=== PATIENT | male | born 1950 | race Caucasian/White ===

== ENCOUNTER 2016-05-31 20:29 | Inpatient (IN) | payer MEDICARE, OTHER ==
[2016-05-31 20:41] LABS: Glucose,Whole Blood 216 mg/dL (75-99)
[2016-05-31] MEDS ORDERED: SODIUM CHLORIDE 0.9% 1,000 ML IV ONE ×2 (20:47)
[2016-05-31] MEDS ORDERED: ONDANSETRON 4 MG/2 ML VIAL IVP STA (20:54)
[2016-05-31 21:20] LABS: Basophils % (A) 0 %; CH 29.3; CHCM 34.9; Eosinophils # (A) 0.1 k/uL (0-0.7); Eosinophils % (A) 1 %; HCT 46.7 % (39.0-53.0); HGB 15.9 gm/dL (13.0-17.5); Luc # (Auto) 0.05; Luc % (Auto) 1; Lymphocytes # (A) 0.6 k/uL (1.0-4.8); Lymphocytes % (A) 6 %; MCH 28.6 pg (25.0-35.0); MCV 84.1 fL (80.0-100.0); Mean Platelet Volume 7.1; Monocytes # (A) 0.4 k/uL (0-1.0); Monocytes % (A) 5 %; Neutrophils # (A) 8.3 k/uL (1.3-7.7); Neutrophils % (A) 88 %; RBC 5.55 m/uL (4.30-5.90); RDW 14.1 % (11.5-15.5); WBC 9.4 k/uL (3.8-10.6); WBC (Perox) 9.81
[2016-05-31 21:35] LABS: INR 1.1 (<1.1); Partial Thromboplastin Time 22.7 sec (22.0-30.0); Prothrombin Time 11.1 sec (9.0-12.0)
[2016-05-31 21:37] LABS: ALT 32 U/L (21-72); AST 18 U/L (17-59); Acetaminophen <10.0 ug/mL; Alcohol <10 mg/dL; Alkaline Phosphatase 83 U/L (38-126); Anion Gap 14 mmol/L; Blood Urea Nitrogen 20 mg/dL (9-20); Calcium 9.1 mg/dL (8.4-10.2); Carbon Dioxide 22 mmol/L (22-30); Chloride 102 mmol/L (98-107); Glucose 227 mg/dL (74-99); Non-African American GFR(MDRD) >60 (>60 ml/min/1.73 sqM); Potassium 4.1 mmol/L (3.5-5.1); Salicylate <1.0 mg/dL; Sodium 138 mmol/L (137-145); Total Bilirubin 0.7 mg/dL (0.2-1.3); Total Protein 6.7 g/dL (6.3-8.2)
[2016-05-31 21:39] LABS: Creatine Kinase 64 U/L (55-170)
[2016-05-31 21:52] LABS: Creatine Kinase MB 0.8 ng/mL (0.0-2.4); Troponin I <0.012 ng/mL (0.000-0.034)
[2016-05-31] MEDS ORDERED: DILTIAZEM 5 MG/ML 25 ML VIAL IV STA (22:04)
--- NOTE | 2016-05-31 22:04 | ED ---
General Adult HPI - General Chief complaint: Syncope Stated complaint: Altered Mental Status Time Seen by Provider: 05/31/16 20:41 Source: patient, EMS Mode of arrival: EMS Limitations: no limitations - History of Present Illness Initial comments: This 66-year-old white male presents with the complaint of feeling somewhat funny while driving. He apparently had a presyncopal type of episode after he pulled over. He apparently was not involved in any motor vehicle accident. He was nauseated and apparently did vomit. He complains of some chronic low back pain but no other areas of pain. He cannot remember the event very well. He does present via EMS and his blood sugar apparently was approximately 170. EMS. The patient denies any history of atrial fibrillation in the past. Patient overall is a fairly poor historian initially. On recheck, he is much more oriented and a much better historian. He states that he did have some slight chest pains throughout the day. He denies any actual syncope. He denies any history of previous atrial fibrillation but does relate that he had a four-way CABG in 2009. He sees Dr. Armando from cardiology. No other complaints or modifying factors. - Related Data Home Medications Medication Instructions Recorded Confirmed Aspirin 325 mg PO DAILY 05/31/16 05/31/16 Lisinopril (Unknown Dose) 1 dose PO DIRECTED 05/31/16 05/31/16 Metformin (Unknown Dose) 1 dose PO DIRECTED 05/31/16 05/31/16 Metoprolol (Unknown Dose) 1 dose PO DIRECTED 05/31/16 05/31/16 Simvastatin (Unknown Dose) 1 dose PO DAILY 05/31/16 05/31/16 Unknown Neuropathy Medication 1 dose PO DAILY 05/31/16 05/31/16 Allergies Allergy/AdvReac Type Severity Reaction Status Date / Time No Known Allergies Allergy Verified 05/31/16 21:22 Review of Systems ROS Statement: Those systems with pertinent positive or pertinent negative responses have been documented in the HPI. ROS Other: All systems not noted in ROS Statement are negative. Past Medical History Past Medical History: Diabetes Mellitus, Hypertension, Sleep Apnea/CPAP/BIPAP Past Psychological History: No Psychological Hx Reported Smoking Status: Former smoker Past Alcohol Use History: Rare Past Drug Use History: None Reported General Exam - General Exam Comments Initial Comments: GENERAL: The patient is well nourished and well hydrated. VITAL SIGNS: Heart rate, blood pressure, respiratory rate reviewed as recorded in nurse's notes. EYES: Pupils are round and reactive. Extraocular movements are intact. No conjunctival / lid redness or swelling. ENT: No external evidence of injury, swelling, or ecchymosis. Airway is patent. Throat is clear. NECK: Nontender. No swelling or evidence of injury. No subcutaneous emphysema. Trachea is midline. No thyroid mass. HEART: Tachycardic irregular rate Good peripheral pulses. LUNGS/CHEST: Breath sounds clear and equal bilaterally. No rales, rhonchi, or wheezes. No ecchymosis, subcutaneous emphysema, or tenderness. ABDOMEN: Abdomen soft without tenderness. No palpable masses or organomegaly. No peritoneal signs. No abdominal wall swelling or ecchymosis. EXTREMITIES: No extremity tenderness. Normal muscle tone and function. No thoracolumbar tenderness. NEUROLOGIC: Sensation is grossly intact. Cranial nerve exam reveals face is symmetrical, tongue is midline, speech is clear. SKIN: No abrasions or ecchymosis is noted. No induration or masses noted. PSYCHIATRIC: Alert and oriented. Appropriate behavior and judgment. Limitations: no limitations Course Vital Signs 05/31/16 05/31/16 05/31/16 20:45 22:03 23:13 Temperature 98.1 F Pulse Rate 99 123 H 110 H Respiratory 20 20 20 Rate Blood Pressure 170/118 158/78 167/87 O2 Sat by Pulse 94 L 98 97 Oximetry Medical Decision Making - Medical Decision Making The patient was seen and examined. All diagnostics were reviewed. An EKG was done which shows evidence of atrial fibrillation with rapid ventricular response at a rate of 124. He was placed on a playground monitor and his heart rate was 109 on recheck. It later went up to approximately 156. The EKG also shows a QRS duration of 110 and a QTc interval of 497. There is no ST elevation or acute ST-T wave changes noted. An IV is started and he is hydrated. The chest x-ray did not show any acute process. The computed tomography scan of the brain showed a degree of atrophy but no acute process. The laboratory showed evidence of positive marijuana but no other acute process. An IV Cardizem bolus and drip are initiated and are being titrated to decrease his heart rate. It is felt as though he may have had a cardiac arrhythmia and this potentially could have caused some of his mental status changes and possible decreased blood flow to his brain. It is felt as though he would require admission to the hospital for further treatment. Heparin will be started and he will be admitted to the telemetry unit. The case will be discussed with internal medicine in the near future and he'll be admitted with cardiology to consult. - Lab Data Result diagrams: 05/31/16 21:00 05/31/16 21:00 Lab Results 05/31/16 05/31/16 05/31/16 Range/Units 20:39 21:00 21:00 WBC 9.4 (3.8-10.6) k/uL RBC 5.55 (4.30-5.90) m/uL Hgb 15.9 (13.0-17.5) gm/dL Hct 46.7 (39.0-53.0) % MCV 84.1 (80.0-100.0) fL MCH 28.6 (25.0-35.0) pg MCHC 34.0 (31.0-37.0) g/dL RDW 14.1 (11.5-15.5) % Plt Count 199 (150-450) k/uL Neutrophils % 88 % Lymphocytes % 6 % Monocytes % 5 % Eosinophils % 1 % Basophils % 0 % Neutrophils # 8.3 H (1.3-7.7) k/uL Lymphocytes # 0.6 L (1.0-4.8) k/uL Monocytes # 0.4 (0-1.0) k/uL Eosinophils # 0.1 (0-0.7) k/uL Basophils # 0.0 (0-0.2) k/uL PT (9.0-12.0) sec INR (<1.1) APTT (22.0-30.0) sec Sodium (137-145) mmol/L Potassium (3.5-5.1) mmol/L Chloride (98-107) mmol/L Carbon Dioxide (22-30) mmol/L Anion Gap mmol/L BUN (9-20) mg/dL Creatinine (0.66-1.25) mg/dL Est GFR (MDRD) Af Amer (>60 ml/min/1.73 sqM) Est GFR (MDRD) Non-Af (>60 ml/min/1.73 sqM) Glucose (74-99) mg/dL POC Glucose (mg/dL) 216 H (75-99) mg/dL POC Glu Distribution Operations Manager ID Arft, Sanket Calcium (8.4-10.2) mg/dL Total Bilirubin (0.2-1.3) mg/dL AST (17-59) U/L ALT (21-72) U/L Alkaline Phosphatase (38-126) U/L Ammonia (<30) umol/L Total Creatine Kinase 64 (55-170) U/L CK-MB (CK-2) 0.8 (0.0-2.4) ng/mL CK-MB (CK-2) Rel Index 1.3 Troponin I <0.012 (0.000-0.034) ng/mL Total Protein (6.3-8.2) g/dL Albumin (3.5-5.0) g/dL Salicylates mg/dL Urine Opiates Screen (NotDetected) Ur Oxycodone Screen (NotDetected) Urine Methadone Screen (NotDetected) Ur Propoxyphene Screen (NotDetected) Acetaminophen ug/mL Ur Barbiturates Screen (NotDetected) U Tricyclic Antidepress (NotDetected) Ur Phencyclidine Scrn (NotDetected) Ur Amphetamines Screen (NotDetected) U Methamphetamines Scrn (NotDetected) U Benzodiazepines Scrn (NotDetected) Urine Cocaine Screen (NotDetected) U Marijuana (THC) Screen (NotDetected) Serum Alcohol mg/dL 05/31/16 05/31/16 05/31/16 Range/Units 21:00 21:00 21:00 WBC (3.8-10.6) k/uL RBC (4.30-5.90) m/uL Hgb (13.0-17.5) gm/dL Hct (39.0-53.0) % MCV (80.0-100.0) fL MCH (25.0-35.0) pg MCHC (31.0-37.0) g/dL RDW (11.5-15.5) % Plt Count (150-450) k/uL Neutrophils % % Lymphocytes % % Monocytes % % Eosinophils % % Basophils % % Neutrophils # (1.3-7.7) k/uL Lymphocytes # (1.0-4.8) k/uL Monocytes # (0-1.0) k/uL Eosinophils # (0-0.7) k/uL Basophils # (0-0.2) k/uL PT 11.1 (9.0-12.0) sec INR 1.1 (<1.1) APTT 22.7 (22.0-30.0) sec Sodium 138 (137-145) mmol/L Potassium 4.1 (3.5-5.1) mmol/L Chloride 102 (98-107) mmol/L Carbon Dioxide 22 (22-30) mmol/L Anion Gap 14 mmol/L BUN 20 (9-20) mg/dL Creatinine 0.88 (0.66-1.25) mg/dL Est GFR (MDRD) Af Amer >60 (>60 ml/min/1.73 sqM) Est GFR (MDRD) Non-Af >60 (>60 ml/min/1.73 sqM) Glucose 227 H (74-99) mg/dL POC Glucose (mg/dL) (75-99) mg/dL POC Glu Distribution Operations Manager ID Calcium 9.1 (8.4-10.2) mg/dL Total Bilirubin 0.7 (0.2-1.3) mg/dL AST 18 (17-59) U/L ALT 32 (21-72) U/L Alkaline Phosphatase 83 (38-126) U/L Ammonia <9 (<30) umol/L Total Creatine Kinase (55-170) U/L CK-MB (CK-2) (0.0-2.4) ng/mL CK-MB (CK-2) Rel Index Troponin I (0.000-0.034) ng/mL Total Protein 6.7 (6.3-8.2) g/dL Albumin 3.9 (3.5-5.0) g/dL Salicylates <1.0 mg/dL Urine Opiates Screen (NotDetected) Ur Oxycodone Screen (NotDetected) Urine Methadone Screen (NotDetected) Ur Propoxyphene Screen (NotDetected) Acetaminophen <10.0 ug/mL Ur Barbiturates Screen (NotDetected) U Tricyclic Antidepress (NotDetected) Ur Phencyclidine Scrn (NotDetected) Ur Amphetamines Screen (NotDetected) U Methamphetamines Scrn (NotDetected) U Benzodiazepines Scrn (NotDetected) Urine Cocaine Screen (NotDetected) U Marijuana (THC) Screen (NotDetected) Serum Alcohol <10 mg/dL 05/31/16 Range/Units 22:59 WBC (3.8-10.6) k/uL RBC (4.30-5.90) m/uL Hgb (13.0-17.5) gm/dL Hct (39.0-53.0) % MCV (80.0-100.0) fL MCH (25.0-35.0) pg MCHC (31.0-37.0) g/dL RDW (11.5-15.5) % Plt Count (150-450) k/uL Neutrophils % % Lymphocytes % % Monocytes % % Eosinophils % % Basophils % % Neutrophils # (1.3-7.7) k/uL Lymphocytes # (1.0-4.8) k/uL Monocytes # (0-1.0) k/uL Eosinophils # (0-0.7) k/uL Basophils # (0-0.2) k/uL PT (9.0-12.0) sec INR (<1.1) APTT (22.0-30.0) sec Sodium (137-145) mmol/L Potassium (3.5-5.1) mmol/L Chloride (98-107) mmol/L Carbon Dioxide (22-30) mmol/L Anion Gap mmol/L BUN (9-20) mg/dL Creatinine (0.66-1.25) mg/dL Est GFR (MDRD) Af Amer (>60 ml/min/1.73 sqM) Est GFR (MDRD) Non-Af (>60 ml/min/1.73 sqM) Glucose (74-99) mg/dL POC Glucose (mg/dL) (75-99) mg/dL POC Glu Distribution Operations Manager ID Calcium (8.4-10.2) mg/dL Total Bilirubin (0.2-1.3) mg/dL AST (17-59) U/L ALT (21-72) U/L Alkaline Phosphatase (38-126) U/L Ammonia (<30) umol/L Total Creatine Kinase (55-170) U/L CK-MB (CK-2) (0.0-2.4) ng/mL CK-MB (CK-2) Rel Index Troponin I (0.000-0.034) ng/mL Total Protein (6.3-8.2) g/dL Albumin (3.5-5.0) g/dL Salicylates mg/dL Urine Opiates Screen Not Detected (NotDetected) Ur Oxycodone Screen Not Detected (NotDetected) Urine Methadone Screen Not Detected (NotDetected) Ur Propoxyphene Screen Not Detected (NotDetected) Acetaminophen ug/mL Ur Barbiturates Screen Not Detected (NotDetected) U Tricyclic Antidepress Not Detected (NotDetected) Ur Phencyclidine Scrn Not Detected (NotDetected) Ur Amphetamines Screen Not Detected (NotDetected) U Methamphetamines Scrn Not Detected (NotDetected) U Benzodiazepines Scrn Not Detected (NotDetected) Urine Cocaine Screen Not Detected (NotDetected) U Marijuana (THC) Screen Detected H (NotDetected) Serum Alcohol mg/dL Disposition Clinical Impression: Atrial fibrillation with rapid ventricular response, Near syncope, Chest pain, Hypertension, Marijuana abuse, Nausea and vomiting Disposition: ADMITTED IP TO THIS HOSP Condition: Fair Time of Disposition: 23:30 Decision Date: 05/31/16 Decision Time: 23:30
[2016-05-31] MEDS ORDERED: DILTIAZEM 125 MG in SODIUM CHLORIDE 0.9% 100 ML IV ONE (22:15)
--- NOTE | 2016-05-31 23:07 | CT ---
EXAMINATION TYPE: CT brain wo con DATE OF EXAM: 05/31/2016 10:53 PM COMPARISON: NONE HISTORY: Pt states of weakness. CT DLP: 967.3 mGycm Automated exposure control for dose reduction was used. FINDINGS: There is mild cerebral cortical atrophy. There is no mass effect or midline shift. There is no sign o f intracranial hemorrhage. Calvarium is intact. IMPRESSION: Mild cerebral atrophy. No acute intracranial abnormality.
--- NOTE | 2016-05-31 23:08 | XR ---
EXAMINATION TYPE: XR chest 2V DATE OF EXAM: 05/31/2016 11:04 PM COMPARISON: 12/02/2009 HISTORY: Altered mental status TECHNIQUE: Frontal and lateral views of the chest are obtained. FINDINGS: There is no heart failure no confluent pneumonic infiltrate. There are sternal wires. Ther e are no hilar masses. There are chest leads. Bony thorax is intact. IMPRESSION: No active cardiopulmonary disease. There is improved aeration of the left lung base comp ared to old exam.
[2016-05-31] MEDS ORDERED: HEPARIN SODIUM,PORCINE 5,000 UNIT/ML 1 ML VIAL IV ONE (23:31)
[2016-05-31] MEDS ORDERED: HEPARIN SODIUM,PORCINE 5,000 UNIT/ML 1 ML VIAL IV PRN (23:31)
[2016-05-31] MEDS ORDERED: NITROGLYCERIN SL TABS 0.4 MG TAB SUBLINGUAL PRN (23:32)
[2016-05-31] MEDS ORDERED: ASPIRIN 81 MG CHEW PO STA (23:32)
[2016-05-31] MEDS ORDERED: HEPARIN SODIUM,PORCINE/D5W PMX 25,000 UNIT in DEXTROSE/WATER 1 500ML.BAG IV SCH (23:45)
[2016-05-31] MEDS ORDERED: LISINOPRIL PO SCH (23:45)
[2016-05-31] MEDS ORDERED: METFORMIN PO SCH (23:45)
[2016-05-31] MEDS ORDERED: METOPROLOL PO SCH (23:45)
[2016-06-01 01:35] LABS: Appearance,Urine Clear (Clear); Bilirubin,Urine Negative (Negative); Glucose,Urine (UA) 4+ (Negative); Leukocyte Esterase,Urine Negative (Negative); Mucus,Urine Rare /hpf; Nitrite,Urine Negative (Negative); Particle Count 826; Protein,Urine 1+ (Negative); RBC,Urine <1 /hpf (0-5); Specific Gravity,Urine 1.017 (1.001-1.035); Squamous Epithelial Cell,Urine <1 /hpf (0-4); UA Billing (MACRO vs. MICRO) MICRO; Urobilinogen,Urine <2.0 mg/dL (<2.0); WBC,Urine 1 /hpf (0-5)
[2016-06-01 01:39] LABS: Ketones,Urine 2+ (Negative)
[2016-06-01 04:46] VITALS: BMI 40.5
[2016-06-01 05:12] LABS: Troponin I 0.027 ng/mL (0.000-0.034)
[2016-06-01] MEDS: NITROGLYCERIN OINT 1 INCH/GM PACKET TOPICAL SCH ×2 (06:09→07:37)
[2016-06-01 06:24] LABS: Glucose,Whole Blood 190 mg/dL (75-99)
[2016-06-01 06:55] LABS: Basophils % (A) 0 %; CH 28.9; CHCM 33.5; Eosinophils # (A) 0.1 k/uL (0-0.7); Eosinophils % (A) 1 %; HCT 43.7 % (39.0-53.0); HDW 3.28; HGB 14.3 gm/dL (13.0-17.5); Luc # (Auto) 0.09; Luc % (Auto) 1; Lymphocytes # (A) 1.1 k/uL (1.0-4.8); Lymphocytes % (A) 16 %; MCH 28.3 pg (25.0-35.0); MCHC 32.7 g/dL (31.0-37.0); MCV 86.5 fL (80.0-100.0); Mean Platelet Volume 6.9; Monocytes # (A) 0.4 k/uL (0-1.0); Monocytes % (A) 6 %; Neutrophils # (A) 5.1 k/uL (1.3-7.7); Neutrophils % (A) 75 %; RBC 5.05 m/uL (4.30-5.90); WBC 6.8 k/uL (3.8-10.6)
[2016-06-01 07:04] LABS: INR 1.1 (<1.1); Prothrombin Time 11.4 sec (9.0-12.0)
[2016-06-01 07:09] LABS: Cholesterol 115 mg/dL (<200); HDL Cholesterol 40 mg/dL (40-60); Triglycerides 159 mg/dL (<150)
[2016-06-01] MEDS: INSULIN LISPRO (humaLOG) 300 UNIT/3 ML VIAL SQ SCH ×4 (07:38→20:10)
[2016-06-01] MEDS ORDERED: SIMVASTATIN PO SCH (09:00)
[2016-06-01] MEDS ORDERED: [UNRECOGNIZED DRUG - REMARK] PO SCH (09:00)
[2016-06-01] MEDS ORDERED: ASPIRIN 325 MG TAB PO SCH (09:00)
--- NOTE | 2016-06-01 09:33 | ECHOF ---
Referral Reason:cp MEASUREMENTS -------- HEIGHT: 177.8 cm WEIGHT: 127.9 kg BP: 114/72 RVIDd: 3.5 cm (< 3.3) IVSd: 1.4 cm (0.6 - 1.1) LVIDd: 5.2 cm (3.9 - 5.3) LVPWd: 1.5 cm (0.6 - 1.1) IVSs: 1.9 cm LVIDs: 3.8 cm LVPWs: 1.6 cm LA Diam: 3.8 cm (2.7 - 3.8) LAESV Index (A-L): 33.05 ml/m Ao Diam: 3.9 cm (2.0 - 3.7) AV Cusp: 2.4 cm (1.5 - 2.6) MV EXCURSION: 9.588 mm (> 18.000) MV EF SLOPE: 48 mm/s (70 - 150) EPSS: 0.9 cm FINDINGS -------- This was a technically difficult study with suboptimal views. The left ventricular size is normal. There is moderate concentric left ventricular hypertrophy. Overall left ventricular systolic function is normal with, an EF between 60 - 65 %. The right ventricle is mildly enlarged. LA is midly dilated 29-33ml/m2. The right atrium is normal in size. 1.5mg of Definity was utilized for enhancement of images Aortic valve is trileaflet and is mildly thickened. Mild mitral annular calcification present. The tricuspid valve appears structurally normal. No regurgitation noted Trace/mild (physiologic) pulmonic regurgitation. The aortic root is dilated measuring 3.9cm. There is no pericardial effusion. CONCLUSIONS -------- 1. This was a technically difficult study with suboptimal views. 2. The tricuspid valve appears structurally normal. 3. Trace/mild (physiologic) pulmonic regurgitation. 4. The aortic root is dilated measuring 3.9cm. 5. There is no pericardial effusion. 6. The left ventricular size is normal. 7. There is moderate concentric left ventricular hypertrophy. 8. Overall left ventricular systolic function is normal with, an EF between 60 - 65 %. 9. The right ventricle is mildly enlarged. 10. LA is midly dilated 29-33ml/m2. 11. 1.5mg of Definity was utilized for enhancement of images 12. Aortic valve is trileaflet and is mildly thickened. 13. Mild mitral annular calcification present. MOBILE SECURITY ARCHITECT: Luz Maria Head RDCS
--- NOTE | 2016-06-01 10:29 | P.CRDCN ---
<Marlene Orourke E - Last Filed: 06/01/16 10:29> History of Present Illness Consult date: 06/01/16 Requesting physician: Sheila Davis Consult reason: atrial fibrillation Chief complaint: Mental status changes History of present illness: This is a pleasant 66-year-old gentleman who follows regularly with Dr. Mooney in the office. He has a known history of hypertension, diabetes, hyperlipidemia, coronary artery disease with prior bypass surgery, he is a nonsmoker, rare EtOH, he presented to the hospital with mental status changes. According to the patient , he was driving in his truck, he tried to send the text back to a friend of his and was unable to, he then states he felt like he was dreaming but knew he wasn't, he was unsure of where he was, ultimately he was able to get into his driveway and pullover. Patient states at that time he still was quite disoriented, but able to text a friend to come and taken to the hospital. He denies any slurring of speech or expressive aphasia, denies any weakness on one side of the body or the other. At the time of my examination this morning, he feels extremely tired, but is alert and oriented 3. EKG on arrival here showed atrial fibrillation with a rapid ventricular response, according to the patient he has no prior documented history of atrial fibrillation. Chest x-ray on arrival did not reveal any acute cardiopulmonary disease. Echocardiogram with Doppler study was also performed which revealed an ejection fraction of 60-65% with mildly dilated left atrium. Lab data, CBC normal, potassium 4.1, BUN 20, creatinine 0.8. Glucose on admission 227. Troponin 0.012, 0.027. Drug screen was performed which was positive for marijuana but otherwise negative. Blood pressure on arrival to the emergency room 170/118 heart rate in the 120 range. 94% on room air. Afebrile. Blood pressure this morning 128/76, heart rate in the 90s, 95% on room air. Patient continues to be in atrial fibrillation. Currently on IV heparin, Cardizem drip 5 mg per hour. Past Medical History Past Medical History: Coronary Artery Disease (CAD), Chest Pain / Angina, Diabetes Mellitus, Hypertension, Myocardial Infarction (HI), Neurologic Disorder , Osteoarthritis (OA), Prostate Disorder, Syncope Last Myocardial Infarction Date:: 11/2009 History of Any Multi-Drug Resistant Organisms: None Reported Past Surgical History: Coronary Bypass/CABG, Heart Catheterization With Stent, Orthopedic Surgery Past Anesthesia/Blood Transfusion Reactions: No Reported Reaction Date of Last Stent Placement:: 03/2007 Past Psychological History: No Psychological Hx Reported Smoking Status: Never smoker Past Alcohol Use History: Rare Past Drug Use History: None Reported - Past Family History Father Family Medical History: Myocardial Infarction (HI) Mother Family Medical History: Cancer Additional Family Medical History / Comment(s): at age 65 of liver cancer Medications and Allergies Home Medications Medication Instructions Recorded Confirmed Type Aspirin 325 mg PO DAILY 05/31/16 05/31/16 History Gabapentin [Neurontin] 100 mg PO BID 06/01/16 06/01/16 History Lisinopril [Zestril] 20 mg PO BID 06/01/16 06/01/16 History Metoprolol Tartrate [Lopressor] 50 mg PO BID 06/01/16 06/01/16 History Simvastatin [Zocor] 80 mg PO DAILY 06/01/16 06/01/16 History Tamsulosin [Flomax] 0.4 mg PO DAILY 06/01/16 06/01/16 History metFORMIN HCL [Glucophage] 1,000 mg PO BID 06/01/16 06/01/16 History Allergies Allergy/AdvReac Type Severity Reaction Status Date / Time No Known Allergies Allergy Verified 05/31/16 21:22 Physical Exam Vitals: Vital Signs Temp Pulse Pulse Resp BP BP Pulse Ox 06/01/16 09:22 92 18 06/01/16 08:20 97.6 F 92 18 129/77 95 06/01/16 08:00 97.1 F L 91 18 124/70 96 06/01/16 05:09 18 06/01/16 04:30 98.2 F 74 16 114/72 94 L 06/01/16 02:37 97.6 F 74 18 105/72 98 06/01/16 00:08 121 H 20 117/73 Intake and Output 05/31/16 06/01/16 06/01/16 22:59 06:59 14:59 Intake Total 135.417 559.364 Output Total 300 Balance 135.417 259.364 Intake: IV 90 Diltiazem 125 mg In 10 Sodium Chloride 0.9% 100 ml @ 5 MG/HR 5 mls/hr IV .Q24H [facility] Rx#:[id number] Heparin Sodium,Porcine/ 40 D5w Pmx 25,000 unit In Dextrose/Water 1 500ml. bag @ 7.7 UNITS/KG/HR 20. 25 mls/hr IV .Q24H [facility] Rx #:[id number] Sodium Chloride 0.9% 1, 40 000 ml @ 100 mls/hr IV . Q10H [facility] Rx#:[id number] Intake, IV Titration 45.417 319.364 Amount Diltiazem 125 mg In 45.417 57.333 Sodium Chloride 0.9% 100 ml @ 5 MG/HR 5 mls/hr IV .Q24H [facility] Rx#:[id number] Heparin Sodium,Porcine/ 262.031 D5w Pmx 25,000 unit In Dextrose/Water 1 500ml. bag @ 7.7 UNITS/KG/HR 20. 25 mls/hr IV .Q24H [facility] Rx #:[id number] Oral 240 Output: Urine 300 Other: Voiding Method Toilet Urinal Weight 128.1 kg PHYSICAL EXAMINATION: HEENT: Head is atraumatic, normocephalic. Pupils equal, round. Neck is supple. There is no elevated jugular venous pressure. HEART EXAMINATION: Heart S1-S2 irregular irregular CHEST EXAMINATION: Lungs are clear to auscultation and precussion. No chest wall tenderness is noted on palpation or with deep breathing. ABDOMEN: Soft, obese, nontender. Bowel sounds are heard. No organomegaly noted. EXTREMITIES: 2+ peripheral pulses with no evidence of peripheral edema and no calf tenderness noted. NEUROLOGIC patient is awake, alert and oriented -3. . Results 06/01/16 06:28 05/31/16 21:00 Cardiac Enzymes 06/01/16 Range/Units 04:10 CK-MB (CK-2) 1.0 (0.0-2.4) ng/mL Troponin I 0.027 (0.000-0.034) ng/mL Coagulation 06/01/16 Range/Units 06:28 PT 11.4 (9.0-12.0) sec APTT 29.0 (22.0-30.0) sec Lipids 06/01/16 Range/Units 06:28 Triglycerides 159 H (<150) mg/dL Cholesterol 115 (<200) mg/dL HDL Cholesterol 40 (40-60) mg/dL CBC 06/01/16 Range/Units 06:28 WBC 6.8 (3.8-10.6) k/uL RBC 5.05 (4.30-5.90) m/uL Hgb 14.3 (13.0-17.5) gm/dL Hct 43.7 (39.0-53.0) % Plt Count 196 (150-450) k/uL Current Medications Generic Name Dose Route Start Last Admin Trade Name Freq PRN Reason Stop Dose Admin Aspirin 325 mg 06/01/16 09:00 06/01/16 09:44 Aspirin PO 325 mg DAILY [facility] Administration Heparin Sodium (Porcine) 0 unit 05/31/16 23:31 06/01/16 08:16 Heparin IV 4,000 unit PER PROTOCOL PRN Administration Low PTT Protocol Diltiazem HCl 125 mg/ Sodium 125 mls @ 5 mls/hr 05/31/16 22:15 06/01/16 08:20 Chloride IV 06/01/16 22:14 2.5 mg/hr .Q24H ONE 2.5 mls/hr Protocol Titration 5 MG/HR Heparin Sodium/Dextrose 25,000 500 mls @ 20.25 mls/hr 05/31/16 23:45 08:17 unit/ IV Solution IV 14.25 units/kg/hr .Q24H [facility] 37.5 mls/hr Protocol Titration 7.7 UNITS/KG/HR Insulin Human Lispro 0 unit 06/01/16 07:30 06/01/16 07:38 Humalog SQ 3 unit ACHS [facility] Administration Protocol Nitroglycerin 1 inch 06/01/16 00:00 06/01/16 07:37 Nitro-Bid Oint TOPICAL Not Given Q6HR [facility] Nitroglycerin 0.4 mg 05/31/16 23:32 Nitrostat SUBLINGUAL Q5M PRN Chest Pain Non-Formulary Medication 1 dose 05/31/16 23:45 Lisinopril (Unknown Dose) PO DIRECTED [facility] Non-Formulary Medication 1 dose 05/31/16 23:45 Metformin (Unknown Dose) PO DIRECTED [facility] Non-Formulary Medication 1 dose 05/31/16 23:45 Metoprolol (Unknown Dose) PO DIRECTED [facility] Non-Formulary Medication 1 dose 06/01/16 09:00 Simvastatin (Unknown Dose) PO DAILY [facility] Non-Formulary Medication 1 dose 06/01/16 09:00 Unknown Neuropathy Medication PO DAILY [facility] Intake and Output 05/31/16 06/01/16 06/01/16 22:59 06:59 14:59 Intake Total 135.417 559.364 Output Total 300 Balance 135.417 259.364 Intake: IV 90 Diltiazem 125 mg In 10 Sodium Chloride 0.9% 100 ml @ 5 MG/HR 5 mls/hr IV .Q24H [facility] Rx#:[id number] Heparin Sodium,Porcine/ 40 D5w Pmx 25,000 unit In Dextrose/Water 1 500ml. bag @ 7.7 UNITS/KG/HR 20. 25 mls/hr IV .Q24H [facility] Rx #:[id number] Sodium Chloride 0.9% 1, 40 000 ml @ 100 mls/hr IV . Q10H [facility] Rx#:[id number] Intake, IV Titration 45.417 319.364 Amount Diltiazem 125 mg In 45.417 57.333 Sodium Chloride 0.9% 100 ml @ 5 MG/HR 5 mls/hr IV .Q24H [facility] Rx#:[id number] Heparin Sodium,Porcine/ 262.031 D5w Pmx 25,000 unit In Dextrose/Water 1 500ml. bag @ 7.7 UNITS/KG/HR 20. 25 mls/hr IV .Q24H [facility] Rx #:[id number] Oral 240 Output: Urine 300 Other: Voiding Method Toilet Urinal Weight 128.1 kg 06/01/16 06:28 EKG Interpretations (text) EKG shows atrial fibrillation with a rapid ventricular response. Assessment and Plan Plan: Assessment and plan #1 mental status changes, rule out TIA. CAT scan revealed mild cerebral atrophy with no acute intracranial abnormality. #2 atrial fibrillation with rapid ventricular response, appears to be of new onset, currently on IV heparin and Cardizem drips. #3 hypertension, uncontrolled #4 history of hypertension # 5 hyperlipidemia #6 diabetes #7 coronary artery disease with prior bypass surgery in 2009, HICKS to the LAD, saphenous vein graft to the OM1, OM 3, PLV. He should also underwent a stenting of the LAD and RCA in 2006 prior to the bypass surgery Plan We'll discontinue the patient's Nitropaste. Resume at a prolonged 50 mg one tablet by mouth twice a day as the patient takes at home, resume statin, resume lisinopril. Discontinue IV Cardizem. Decrease aspirin to 81 mg daily. We will also check to see if the patient has coverage for one of the newer anticoagulants, and then we will initiate that. It was explained to the patient that he will require anticoagulation long-term for stroke prevention. DNP note has been reviewed, I agree with a documented findings and plan of care. Patient was seen and examined. <Baltazar Larsen - Last Filed: 06/01/16 12:27> Physical Exam Vitals: Vital Signs Temp Pulse Pulse Resp BP BP Pulse Ox 06/01/16 11:07 96.8 F L 77 16 141/88 95 06/01/16 09:22 92 18 06/01/16 08:20 97.6 F 92 18 129/77 95 06/01/16 08:00 97.1 F L 91 18 124/70 96 06/01/16 05:09 18 06/01/16 04:30 98.2 F 74 16 114/72 94 L 06/01/16 02:37 97.6 F 74 18 105/72 98 06/01/16 00:08 121 H 20 117/73 Intake and Output 05/31/16 06/01/16 06/01/16 22:59 06:59 14:59 Intake Total 135.417 559.364 Output Total 300 Balance 135.417 259.364 Intake: IV 90 Diltiazem 125 mg In 10 Sodium Chloride 0.9% 100 ml @ 5 MG/HR 5 mls/hr IV .Q24H [facility] Rx#:[id number] Heparin Sodium,Porcine/ 40 D5w Pmx 25,000 unit In Dextrose/Water 1 500ml. bag @ 7.7 UNITS/KG/HR 20. 25 mls/hr IV .Q24H [facility] Rx #:[id number] Sodium Chloride 0.9% 1, 40 000 ml @ 100 mls/hr IV . Q10H [facility] Rx#:[id number] Intake, IV Titration 45.417 319.364 Amount Diltiazem 125 mg In 45.417 57.333 Sodium Chloride 0.9% 100 ml @ 5 MG/HR 5 mls/hr IV .Q24H [facility] Rx#:[id number] Heparin Sodium,Porcine/ 262.031 D5w Pmx 25,000 unit In Dextrose/Water 1 500ml. bag @ 7.7 UNITS/KG/HR 20. 25 mls/hr IV .Q24H [facility] Rx #:[id number] Oral 240 Output: Urine 300 Other: Voiding Method Toilet Urinal Weight 128.1 kg Results 06/01/16 06:28 05/31/16 21:00 Cardiac Enzymes 06/01/16 06/01/16 Range/Units 04:10 10:17 CK-MB (CK-2) 1.0 0.9 (0.0-2.4) ng/mL Troponin I 0.027 0.027 (0.000-0.034) ng/mL Coagulation 06/01/16 Range/Units 06:28 PT 11.4 (9.0-12.0) sec APTT 29.0 (22.0-30.0) sec Lipids 06/01/16 Range/Units 06:28 Triglycerides 159 H (<150) mg/dL Cholesterol 115 (<200) mg/dL HDL Cholesterol 40 (40-60) mg/dL CBC 06/01/16 Range/Units 06:28 WBC 6.8 (3.8-10.6) k/uL RBC 5.05 (4.30-5.90) m/uL Hgb 14.3 (13.0-17.5) gm/dL Hct 43.7 (39.0-53.0) % Plt Count 196 (150-450) k/uL Current Medications Generic Name Dose Route Start Last Admin Trade Name Freq PRN Reason Stop Dose Admin Aspirin 81 mg 06/02/16 09:00 Aspirin PO DAILY [facility] Atorvastatin Calcium 40 mg 06/01/16 11:00 06/01/16 11:41 Lipitor PO 40 mg DAILY [facility] Administration Insulin Human Lispro 0 unit 06/01/16 07:30 06/01/16 12:10 Humalog SQ 5 unit ACHS [facility] Administration Protocol Lisinopril 20 mg 06/01/16 10:30 06/01/16 11:41 Zestril PO 20 mg BID [facility] Administration Metoprolol Tartrate 50 mg 06/01/16 10:30 06/01/16 11:42 Lopressor PO 50 mg BID [facility] Administration Nitroglycerin 0.4 mg 05/31/16 23:32 Nitrostat SUBLINGUAL Q5M PRN Chest Pain Rivaroxaban 20 mg 06/01/16 17:30 Xarelto PO W/SUPPER [facility] Intake and Output 05/31/16 06/01/16 06/01/16 22:59 06:59 14:59 Intake Total 135.417 559.364 Output Total 300 Balance 135.417 259.364 Intake: IV 90 Diltiazem 125 mg In 10 Sodium Chloride 0.9% 100 ml @ 5 MG/HR 5 mls/hr IV .Q24H [facility] Rx#:[id number] Heparin Sodium,Porcine/ 40 D5w Pmx 25,000 unit In Dextrose/Water 1 500ml. bag @ 7.7 UNITS/KG/HR 20. 25 mls/hr IV .Q24H [facility] Rx #:[id number] Sodium Chloride 0.9% 1, 40 000 ml @ 100 mls/hr IV . Q10H [facility] Rx#:[id number] Intake, IV Titration 45.417 319.364 Amount Diltiazem 125 mg In 45.417 57.333 Sodium Chloride 0.9% 100 ml @ 5 MG/HR 5 mls/hr IV .Q24H [facility] Rx#:[id number] Heparin Sodium,Porcine/ 262.031 D5w Pmx 25,000 unit In Dextrose/Water 1 500ml. bag @ 7.7 UNITS/KG/HR 20. 25 mls/hr IV .Q24H [facility] Rx #:[id number] Oral 240 Output: Urine 300 Other: Voiding Method Toilet Urinal Weight 128.1 kg 06/01/16 06:28
[2016-06-01 11:18] LABS: Creatine Kinase MB 0.9 ng/mL (0.0-2.4); Troponin I 0.027 ng/mL (0.000-0.034)
[2016-06-01 11:36] LABS: Glucose,Whole Blood 230 mg/dL (75-99)
[2016-06-01] MEDS: ATORVASTATIN 40 MG TAB PO SCH (11:41)
[2016-06-01] MEDS: LISINOPRIL 20 MG TAB PO SCH ×2 (11:41→20:10)
[2016-06-01] MEDS: METOPROLOL TARTRATE 50 MG TAB PO SCH ×2 (11:42→20:10)
[2016-06-01 16:58] LABS: Glucose,Whole Blood 183 mg/dL (75-99)
--- NOTE | 2016-06-01 17:10 | US ---
EXAMINATION TYPE: US carotid duplex BILAT DATE OF EXAM: 06/01/2016 4:30 PM COMPARISON: NONE CLINICAL HISTORY: 66-year-old male, patient had a spell where he didn't know where he was, TIA. TECHNIQUE: Carotid duplex ultrasound examination. Indirect Doppler criteria was utilized. FINDINGS: Davis scale images show mild to moderate atelectatic change at both bifurcations. Grossly enlarged thy roid gland is present. The program manager environmental planning, is that this is displacing vessels in the right vertebral art shell could initially not be identified. EXAM MEASUREMENTS: RIGHT: Peak Systolic Velocity (PSV) cm/sec ----- Right CCA: 50.3 ----- Right ICA: 46.8 ----- Right ECA: 76.7 ICA/CCA ratio: 0.9 RIGHT: End Diastole cm/sec ----- Right CCA: 14.7 ----- Right ICA: 18.2 ----- Right ECA: 9.8 LEFT: Peak Systolic Velocity (PSV) cm/sec ----- Left CCA: 47.7 ----- Left ICA: 50.3 ----- Left ECA: 82.4 ICA/CCA ratio: 1.1 LEFT: End Diastole cm/sec ----- Left CCA: 14.5 ----- Left ICA: 18.9 ----- Left ECA: 6.0 VERTEBRALS (direction of flow): Right Vertebral: Antegrade Left Vertebral: Antegrade IMPRESSION: 1. No hemodynamically significant stenosis appreciated within either ICA. 2. Grossly enlarged thyroid gland. The program manager environmental planning indicates that the gland is displacing the adjacen t vessels. Consider dedicated thyroid ultrasound to further evaluate. Criteria for Assigning % of Stenosis / Diameter reduction (Estimation based on the indirect measurements of the internal carotid artery velocities (ICA PSV). 1. Normal (no stenosis)=ICA PSV < 125 cm/s: ratio < 2.0: ICA EDV<40 cm/s. 2. Less than 50% stenosis=ICA PSV < 125 cm/s: ratio < 2.0: ICA EDV<40 cm/s. 3. 50 to 69% stenosis=ICA PSV of 125 to 230 cm/s: ration 2.0 ? 4.0: ICA EDV 40-100 cm/s. 4. Greater than 70% stenosis to near occlusion= ICA PSV > 230 cm/s: ratio > 4.0: ICA EDV > 100 cm/s. 5. Near occlusion= ICA PSV velocities may be low or undetectable: variable ratio and ICA EDV. 6. Total occlusion=unable to detect flow.
[2016-06-01] MEDS: RIVAROXABAN 10 MG TAB PO SCH (17:13)
--- NOTE | 2016-06-01 19:53 | HP ---
DATE OF ADMISSION: 05/31/2016 CHIEF COMPLAINT: Altered mental status. HISTORY OF PRESENT ILLNESS: Mr. Anton is a 66-year-old man with a known history of coronary artery disease, status post coronary artery bypass graft in 2009, hypertension, hyperlipidemia, [id number] diabetes, type II, came to the hospital with complaints of altered mental status. 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 Patient tried to lung puller his truck and took a while to lung puller. Finally he was able to text his friend back to come and pick him up. Patient also felt bilateral upper extremity weakness and especially more on the left side and the patient otherwise denied any chest pain. No palpitations. No fever. No chills. No recent illness. Patient does not have any history of atrial fibrillation. The patient was brought to the hospital and he was altered mental status for two hours and his mentation improved once he came to the hospital. Otherwise, patient urine also found to have marijuana. The patient states that he did get organic vegetable chili from his friend, 15 minutes prior to his driving and does not use any marijuana at home. No recent illnesses. No other recent long distant travel. No sick contacts at home. Patient's 2D echo in the hospital showed ejection fraction 60-65% with mildly dilated left atrium. does Otherwise, the patient was started on Cardizem drip and currently changed to Metoprolol p.o. Heart rate is better controlled and the patient remained in atrial fibrillation. Cardiology is following this patient. REVIEW OF SYSTEMS: CONSTITUTIONAL: No fever. No chills. No weakness, malaise. RESPIRATORY: No cough or sputum production. CARDIOVASCULAR: No chest pain. No short of breath. No leg swelling. ABDOMEN: No nausea, vomiting, abdominal pain. GENITOURINARY: Negative. ENDOCRINE: Negative. Psychiatry: Negative. SKIN: Negative. All other 14 point review of systems negative except above. Past medical history includes: Coronary artery disease, and history of bypass graft, history of SD, hypertension, osteoarthritis, prostate disorder, syncope. PAST SURGICAL HISTORY: Coronary artery bypass graft, heart catheterization and stent placement, orthopedic surgery. PSYCHOSOCIAL HISTORY: None. SOCIAL HISTORY: The patient never a smoker. Occasional alcohol use. Denied any drugs or IVDU. Denied any marijuana use. FAMILY HISTORY: Father had SD, mother of liver cancer. Home medications include: 1. Aspirin. 2. Gabapentin. 3. Lisinopril. 4. Metoprolol. 5. Simvastatin. 6. Flomax. 7. Metformin. ALLERGIES: No known drug allergies. PHYSICAL EXAMINATION: A 66 -year-old male lying in bed comfortably, awake, alert, oriented, x3 appears to be in no apparent distress. VITALS: Blood pressure is 124/70, pulse 94, respirations 18, temperature afebrile, pulse ox 96% on room air. HEENT: Atraumatic, normocephalic. Neck is supple. No jugular venous distention. CVS exam: S1, S2 heard. No murmurs, no gallop, no rub. LUNGS: Bilateral air entry is present. No wheezing. No crackles. Nonlabored breathing. ABDOMEN: Soft, nontender. Bowel sounds present. CENTRAL NERVOUS SYSTEM: Awake, alert and oriented x3. No focal deficits. Cranial nerves grossly intact. EXTREMITIES: No edema. Pulse palpable bilaterally. No clubbing or cyanosis. PSYCHIATRY: Cooperative. LABORATORY DATA: WBC 6.8, hemoglobin 14.3, platelets 196, INR 1.1. ( ) within normal limits. Troponin x3 negative. UA negative for infection. Showed 2+ ketones and 4+ glucose. UDS is positive for marijuana. CT brain mild cerebral atrophy. CHEST X-RAY: No active pulmonary disease. EKG atrial fibrillation with rapid ventricular rate. IMPRESSION: 1. Atrial fibrillation with rapid ventricular rate status post Cardizem drip, currently started on metoprolol twice daily. 2. Altered mental status with bilateral upper extremity weakness left greater than right. Possible transient ischemic attack. We will check carotid duplex. CT head is negative for any acute intracranial process. The patient does not have any weakness at this time. 3. Uncontrolled hypertension. 4. Uncontrolled diabetes mellitus type 2, [id number]. 5. Hyperlipidemia. 6. History of coronary artery disease, status post coronary artery bypass graft in 2009. 7. UDS positive for marijuana, possibly from the food given by his friend 15 minutes prior to his travel as per patient. Discussion and plan: Patient will be continued on metoprolol 50 mg b.i.d. We will check TSH level, we will check carotid duplex and continue the current management otherwise. Continue aspirin, statins, beta blockers and Lisinopril. Anticoagulation was started in the form of Rivaroxaban. Cardiology is following this patient. Further recommendations based on clinical course. Anticipate discharge tomorrow if heart rate is controlled and carotid duplex negative. Further recommendations based on clinical course.
[2016-06-01 20:09] LABS: Glucose,Whole Blood 304 mg/dL (75-99)
[2016-06-02 05:53] LABS: Glucose,Whole Blood 165 mg/dL (75-99)
[2016-06-02 06:26] LABS: Basophils % (A) 1 %; CH 28.9; CHCM 33.5; Eosinophils # (A) 0.2 k/uL (0-0.7); Eosinophils % (A) 4 %; HCT 43.8 % (39.0-53.0); HDW 3.26; HGB 14.3 gm/dL (13.0-17.5); Luc % (Auto) 2; Lymphocytes % (A) 18 %; MCH 28.4 pg (25.0-35.0); MCHC 32.6 g/dL (31.0-37.0); MCV 86.9 fL (80.0-100.0); Mean Platelet Volume 6.9; Monocytes # (A) 0.4 k/uL (0-1.0); Monocytes % (A) 7 %; Neutrophils # (A) 3.8 k/uL (1.3-7.7); Neutrophils % (A) 69 %; RBC 5.04 m/uL (4.30-5.90); RDW 14.2 % (11.5-15.5); WBC 5.6 k/uL (3.8-10.6); WBC (Perox) 5.88
[2016-06-02] MEDS: INSULIN LISPRO (humaLOG) 300 UNIT/3 ML VIAL SQ SCH ×2 (06:38→12:22)
[2016-06-02 06:41] LABS: INR 1.3 (<1.1)
[2016-06-02] MEDS ORDERED: ASPIRIN 81 MG CHEW PO SCH (09:00)
[2016-06-02] MEDS: ATORVASTATIN 40 MG TAB PO SCH (09:33)
[2016-06-02] MEDS: LISINOPRIL 20 MG TAB PO SCH (09:33)
[2016-06-02] MEDS: METOPROLOL TARTRATE 50 MG TAB PO SCH (09:34)
--- NOTE | 2016-06-02 10:18 | CDI ---
In responding to this query, please exercise your independent professional judgment. The [facility] Coding Staff and Clinical Documentation Specialists appreciate your assistance in clarifying documentation, maintaining compliance with coding guidelines, accurately documenting patients condition and capturing severity of illness. The fact that a question is asked does not imply that any particular answer is desired or expected. Communication forms are a method of clarifying documentation and are not made part of the Legal Health Record. Thank you in advance for your clarification. Last Revision, March 2015 Francisco J Arthur [address] [facility] [place] [address] Documentation Clarification Form Date: 06/02/2016 10:10:00 AM From: Tova Mccallum Admit Date: 05/31/2016 11:32:00 PM Patient Name: Sanket Anton Visit Number: [id number] Dr. Kimo Quinonez, 'Uncontrolled diabetes mellitus type 2' is documented in the H&P. Patient history/risk factors Diabetes Mellitus type 2 - non insulin dependent Hypertension CAD Clinical Indicators: Lab findings: serum glucose 227 on admission Urinalysis shows 4+ glucose on 05/31 Treatment: Glucose monitoring Humalog scale ordered 4x daily In your professional opinion, can you please clarify the correct diagnosis for the uncontrolled diabetes mellitus? Hyperglycemia Hypoglycemia Other (please specify) Unable to determine Please document in your progress notes and discharge summary in order to capture severity of illness and risk of mortality. Include clinical findings that support your diagnosis. FYI: Press F11 to launch patient chart. Place X here if this finding has no clinical significance, is not applicable or if you are not able to provide any additional documentation. GERARDO
--- NOTE | 2016-06-02 10:39 | CDI ---
In responding to this query, please exercise your independent professional judgment. The [facility] Coding Staff and Clinical Documentation Specialists appreciate your assistance in clarifying documentation, maintaining compliance with coding guidelines, accurately documenting patients condition and capturing severity of illness. The fact that a question is asked does not imply that any particular answer is desired or expected. Communication forms are a method of clarifying documentation and are not made part of the Legal Health Record. Thank you in advance for your clarification. Last Revision, March 2015 Francisco J Arthur [address] [facility] [place] [address] Documentation Clarification Form Date: 06/02/2016 10:19:00 AM From: Tova Mccallum Admit Date: 05/31/2016 11:32:00 PM Patient Name: Sanket Anton Visit Number: [id number] Dr. Kimo Sheikh, 'Uncontrolled hypertension' is documented in the H&P. Patient history/risk factors Hypertension CAD Diabetes Mellitus type 2 Hyperlipidemia Drug screen positive for Marijuana Atrial Fibrillation with RVR present on admission Clinical Indicators: Vital Signs: bp 170/118 on presentation to ED Complaints of altered mental status - felt like he was dreaming - per H&P Did have some 'slight chest pains throughout the day' per ED Treatment: Nitro-bid ointment Meds changed to PO Metoprolol IV fluids with bolus Cardiology consult In your professional opinion, can you please clarify the diagnosis for Uncontrolled Hypertension per ICD-10 codes to accurately reflect the Severity of Illness of this patient? Hypertensive Urgency (SBP>180 or DBP>120 without symptoms or with headache) Hypertensive Emergency (SBP>180 or DBP>120 with chest pain or end organ damage eg Hypertensive Encephalopathy, retinal hemorrhages, papilledema , STEPH) Hypertensive Crisis (SBP>180 or DBP>120 with Stroke, Heart Attack, Heart Failure, Kidney Failure) Other (please specify) Unable to determine Please document in your progress notes and discharge summary in order to capture severity of illness and risk of mortality. Include clinical findings that support your diagnosis. FYI: Press F11 to launch patient chart. Place X here if this finding has no clinical significance, is not applicable or if you are not able to provide any additional documentation. GERARDO
--- NOTE | 2016-06-02 10:54 | CDI ---
In responding to this query, please exercise your independent professional judgment. The [facility] Coding Staff and Clinical Documentation Specialists appreciate your assistance in clarifying documentation, maintaining compliance with coding guidelines, accurately documenting patients condition and capturing severity of illness. The fact that a question is asked does not imply that any particular answer is desired or expected. Communication forms are a method of clarifying documentation and are not made part of the Legal Health Record. Thank you in advance for your clarification. Last Revision, July 2015 Francisco J Arthur [address] [facility] [place] [address] Documentation Clarification Form Date: 06/02/2016 10:40:00 AM From: Tova Mccallum Admit Date: 05/31/2016 11:32:00 PM Patient Name: Sanket Anton Visit Number: [id number] Dr. Cleo Domingo Altered mental status was documented in the H&P. Patient history/risk factors: Hypertension Diabetes Mellitus type 2 Hyperlipidemia CAD Atrial Fibrillation Clinical Indicators: Patient presented to ED 'with complaint of feeling somewhat funny while driving', also 'was nauseated and did vomit' Labs: glucose 227 on presentation Vitals: bp 170/118 on presentation Atrial Fibrillation with RVR on presentation Positive drug screen for marijuana Chest X Ray: negative CT of brain: negative Possible TIA documented in H&P Treatment: IV fluids with bolus IV Zofran IV Cardizem PO Aspirin In your professional opinion, please clarify the etiology of the altered mental status, if known. Delirium (specify cause): Encephalopathy (specify Type and Underlying Medical Illness) - Due to drugs - Hypertensive - Metabolic - Other (please specify) - Unknown type Other condition (please specify) Unable to determine Please document in your progress notes and discharge summary in order to capture severity of illness and risk of mortality. Include clinical findings that support your diagnosis. FYI: Press F11 to launch patient chart. Place X here if this finding has no clinical significance, is not applicable or if you are not able to provide any additional documentation. MTDD
[2016-06-02 11:16] VITALS: TEMP 96.9
[2016-06-02 11:45] LABS: Glucose,Whole Blood 199 mg/dL (75-99)
[2016-06-02] MEDS: amLODIPine 10 MG TAB PO SCH ×2 (12:21→13:04)
[2016-06-02 15:34] VITALS: BP 173/96; PULSE 72; RESP 16
--- NOTE | 2016-06-02 15:36 | P.PN ---
Subjective Principal diagnosis: TIA/A. fib This is a pleasant 66-year-old gentleman who follows regularly with Dr. Mooney in the office. He has a known history of hypertension, diabetes, hyperlipidemia, coronary artery disease with prior bypass surgery, he is a nonsmoker, rare EtOH, he presented to the hospital with mental status changes. According to the patient , he was driving in his truck, he tried to send the text back to a friend of his and was unable to, he then states he felt like he was dreaming but knew he wasn't, he was unsure of where he was, ultimately he was able to get into his driveway and pullover. Patient states at that time he still was quite disoriented, but able to text a friend to come and taken to the hospital. He denies any slurring of speech or expressive aphasia, denies any weakness on one side of the body or the other. At the time of my examination this morning, he feels extremely tired, but is alert and oriented 3. EKG on arrival here showed atrial fibrillation with a rapid ventricular response, according to the patient he has no prior documented history of atrial fibrillation. Chest x-ray on arrival did not reveal any acute cardiopulmonary disease. Echocardiogram with Doppler study was also performed which revealed an ejection fraction of 60-65% with mildly dilated left atrium. Patient has converted to normal sinus rhythm. He was seen and examined today, back to his normal self. Started on xarelto. Objective - Vital Signs Vital signs: Vital Signs Temp 96.9 F L 06/02/16 11:15 Pulse 71 06/02/16 12:00 Resp 14 06/02/16 12:00 BP 181/101 06/02/16 11:28 Pulse Ox 97 06/02/16 11:15 Intake & Output 06/01/16 06/02/16 06/02/16 18:59 06:59 18:59 Intake Total 1039.364 600 Output Total 700 1225 250 Balance 339.364 -625 -250 Weight 129.5 kg Intake: Intake, IV Titration 319.364 Amount Diltiazem 125 mg In 57.333 Sodium Chloride 0.9% 100 ml @ 5 MG/HR 5 mls/hr IV .Q24H [facility] Rx#:[id number] Heparin Sodium,Porcine/ 262.031 D5w Pmx 25,000 unit In Dextrose/Water 1 500ml. bag @ 7.7 UNITS/KG/HR 20. 25 mls/hr IV .Q24H [facility] Rx #:[id number] Oral 720 600 Output: Urine 700 1225 250 Other: Voiding Method Toilet Urinal Urinal # Voids 1 1 # Bowel Movements 0 - Exam PHYSICAL EXAMINATION: HEENT: Head is atraumatic, normocephalic. Pupils equal, round. Neck is supple. There is no elevated jugular venous pressure. HEART EXAMINATION: Heart S1-S2 normal CHEST EXAMINATION: Lungs are clear to auscultation and precussion. No chest wall tenderness is noted on palpation or with deep breathing. ABDOMEN: Soft, obese, nontender. Bowel sounds are heard. No organomegaly noted. EXTREMITIES: 2+ peripheral pulses with no evidence of peripheral edema and no calf tenderness noted. NEUROLOGIC patient is awake, alert and oriented -3. . - Labs CBC & Chem 7: 06/02/16 05:55 05/31/16 21:00 Labs: Abnormal Lab Results - Last 24 Hours (Table) 06/01/16 06/01/16 06/01/16 Range/Units 06:28 16:46 20:08 PT (9.0-12.0) sec POC Glucose (mg/dL) 183 H 304 H (75-99) mg/dL TSH 0.427 L (0.465-4.680) mIU/L 06/02/16 06/02/16 06/02/16 Range/Units 05:52 05:55 11:43 PT 13.0 H (9.0-12.0) sec POC Glucose (mg/dL) 165 H 199 H (75-99) mg/dL TSH (0.465-4.680) mIU/L Assessment and Plan Plan: Assessment and plan #1 mental status changes, rule out TIA. CAT scan revealed mild cerebral atrophy with no acute intracranial abnormality. #2 atrial fibrillation with rapid ventricular response, paroxysmal, appears to be of new onset, currently in normal sinus rhythm. #3 hypertension, uncontrolled #4 history of hypertension # 5 hyperlipidemia #6 diabetes #7 coronary artery disease with prior bypass surgery in 2009, HICKS to the LAD, saphenous vein graft to the OM1, OM 3, PLV. He should also underwent a stenting of the LAD and RCA in 2006 prior to the bypass surgery Plan Cardiology's perspective, patient should be able to be discharged home today. We'll make him a follow-up appointment in the office with Dr. Mooney. He will be discharged home with the addition of Leora. DNP note has been reviewed, I agree with a documented findings and plan of care. Patient was seen and examined.
[2016-06-02] MEDS: RIVAROXABAN 10 MG TAB PO SCH (16:35)
--- NOTE | 2016-06-02 20:09 | P.DS ---
Providers Date of admission: 05/31/16 23:32 Expected date of discharge: 06/02/16 Attending physician: Sheila Davis Primary care physician: [facility] Course: This is a pleasant 66-year-old gentleman who follows regularly with Dr. Mooney in the office. He has a known history of hypertension, diabetes, hyperlipidemia, coronary artery disease with prior bypass surgery, he is a nonsmoker, rare EtOH, he presented to the hospital with mental status changes. According to the patient , he was driving in his truck, he tried to send the text back to a friend of his and was unable to, he then states he felt like he was dreaming but knew he wasn't, he was unsure of where he was, ultimately he was able to get into his driveway and pullover. Patient states at that time he still was quite disoriented, but able to text a friend to come and taken to the hospital. He denies any slurring of speech or expressive aphasia, denies any weakness on one side of the body or the other. At the time of my examination this morning, he feels extremely tired, but is alert and oriented 3. EKG on arrival here showed atrial fibrillation with a rapid ventricular response, according to the patient he has no prior documented history of atrial fibrillation. Chest x-ray on arrival did not reveal any acute cardiopulmonary disease. Echocardiogram with Doppler study was also performed which revealed an ejection fraction of 60-65% with mildly dilated left atrium. Patient has converted to normal sinus rhythm. He was seen and examined today, back to his normal self. Started on xarelto. Discharge diagnoses #1 acute toxic encephalopathy marijuana was noted on his tox screen. #2 atrial fibrillation with rapid ventricular rate which appears to be new onset #3 history of hypertension is slightly uncomfortable #4 disability #5 diabetes #6 CAD Plan patient was evaluated in the hospital for any abnormal rhythms. With atrial fibrillation patient does have a high risk of strokes hence patient will be started on anticoagulation and discharged home. Lungs good air entry clear to auscultation Heart S1-S2 are regular rate and rhythm no murmurs appreciated Abdomen soft nontender no organomegaly Patient Condition at Discharge: Fair Plan - Discharge Summary New Discharge Prescriptions: Aspirin 81 mg PO DAILY #30 chew Rivaroxaban [Xarelto] 20 mg PO W/SUPPER #30 tab amLODIPine [Norvasc] 10 mg PO DAILY #30 tab Discharge Medication List Gabapentin [Neurontin] 100 mg PO BID 06/01/16 [History] Lisinopril [Zestril] 20 mg PO BID 06/01/16 [History] Metoprolol Tartrate [Lopressor] 50 mg PO BID 06/01/16 [History] Tamsulosin [Flomax] 0.4 mg PO DAILY 06/01/16 [History] metFORMIN HCL [Glucophage] 1,000 mg PO BID 06/01/16 [History] Aspirin 81 mg PO DAILY #30 chew 06/02/16 [Rx] Rivaroxaban [Xarelto] 20 mg PO W/SUPPER #30 tab 06/02/16 [Rx] amLODIPine [Norvasc] 10 mg PO DAILY #30 tab 06/02/16 [Rx] Follow up Appointment(s)/Referral(s): Nasrin Mooney MD [STAFF PHYSICIAN] - 1 Week Daniel Murillo MD [Primary Care Provider] - 1-2 days Patient Instructions/Handouts: Atrial Fibrillation (DC) Discharge Disposition: HOME SELF-CARE
== END 2016-06-02 17:08 | disposition home or self-care (01) | DRG 308 ==
LOC: EC 20:29 → 6SEL 23:32
PROVIDERS: ADMIT Hospitalist; ATTEND Hospitalist
DX: I48.91 Unspecified atrial fibrillation (principal); G92 Toxic encephalopathy; E11.65 Type 2 diabetes mellitus with hyperglycemia; E78.5 Hyperlipidemia, unspecified; F12.10 Cannabis abuse, uncomplicated; G47.30 Sleep apnea, unspecified; G89.29 Other chronic pain; I10 Essential (primary) hypertension; I25.10 Atherosclerotic heart disease of native coronary artery without angina pectoris; I25.2 Old myocardial infarction; M19.90 Unspecified osteoarthritis, unspecified site; N42.9 Disorder of prostate, unspecified; M54.5 Low back pain; T40.7X5A Adverse effect of cannabis (derivatives), initial encounter; Z79.82 Long term (current) use of aspirin; Z79.84 Long term (current) use of oral hypoglycemic drugs; Z79.899 Other long term (current) drug therapy; Z87.891 Personal history of nicotine dependence; Z95.1 Presence of aortocoronary bypass graft; Z82.49 Family history of ischemic heart disease and other diseases of the circulatory system; Y92.9 Unspecified place or not applicable
CPT/HCPCS: 36415; 70450; 71020; 80053; 80061; 80306; 80320; 81001; 82140; 82550; 82553; 83520; 84439; 84443; 84484; 85025; 85610; 85730; 93005; 93306; 93880; 96361; 96365; 96366; 96367; 96375; 96376; 99285

== ENCOUNTER → 2016-06-30 | Outpatient (CLI) | payer MEDICARE, OTHER ==
--- NOTE | 2016-06-30 11:16 | US ---
EXAMINATION TYPE: US thyroid st tissue head/neck DATE OF EXAM: 06/30/2016 10:29 AM COMPARISON: CT chest November 27, 2009. CLINICAL HISTORY: E04.9 Goiter. Recent carotid scan showed irregular thyroid tissue MEASUREMENTS: GLAND SIZE: Right Lobe: 6.0 x 4.7 x 3.1cm Left Lobe: 5.9 x 2.2 x 2.8cm Isthmus Thickness: 0.7cm NODULES RIGHT: # of nodules measured on right: 0 LEFT: # of nodules measured on left: 0 ISTHMUS: # of nodules measured within isthmus: 0 TECHNOLOGIST IMPRESSION: very heterogenous gland bilaterally that is enlarged and difficult to penet rate. No discrete nodule seen. Heterogeneous enlarged thyroid gland is redemonstrated which correlates with remote CT, substernal ex tension left thyroid lobe is noted making evaluation of left gland suboptimal. No discrete nodules ar e seen. IMPRESSION: Overall stable findings from CT, heterogeneous enlarged thyroid gland consider diffuse g oiter. No discrete worrisome nodules are identified.
== END | disposition home or self-care (01) ==
LOC: RADUSWWP 10:11
PROVIDERS: ATTEND Family Medicine
DX: E04.9 Nontoxic goiter, unspecified (principal)
CPT/HCPCS: 76536

== ENCOUNTER → 2016-08-03 | Outpatient (CLI) | payer MEDICARE, OTHER | END | disposition home or self-care (01) | LOC: RADMRIMAIN 11:43 | PROVIDERS: ATTEND Family Medicine | DX: Z53.9 Procedure and treatment not carried out, unspecified reason (principal) ==

== ENCOUNTER 2016-12-01 05:50 | Day surgery (SDC) | payer MEDICARE, OTHER ==
[2016-12-01] MEDS ORDERED: SODIUM CHLORIDE 0.9% 1,000 ML IV SCH ×2 (05:58→07:45)
[2016-12-01 06:17] VITALS: TEMP 98.3
[2016-12-01 06:22] LABS: Glucose,Whole Blood 137 mg/dL (75-99)
[2016-12-01 06:41] LABS: Anion Gap 10 mmol/L; Blood Urea Nitrogen 16 mg/dL (9-20); Calcium 8.5 mg/dL (8.4-10.2); Carbon Dioxide 22 mmol/L (22-30); Chloride 109 mmol/L (98-107); Glucose 137 mg/dL (74-99); Non-African American GFR(MDRD) >60 (>60 ml/min/1.73 sqM); Potassium 4.1 mmol/L (3.5-5.1); Sodium 141 mmol/L (137-145)
[2016-12-01] MEDS ORDERED: BENZOCAINE SPRAY 100 APPLIC/CAN MUCOUS MEM ONE (07:03)
[2016-12-01] MEDS ORDERED: PROPOFOL 10 MG/ML 20 ML VIAL IV ONE (07:23)
[2016-12-01] MEDS ORDERED: TAMSULOSIN 0.4 MG CAP.ER.24H PO SCH (07:45)
[2016-12-01] MEDS ORDERED: amLODIPine 5 MG TAB PO STA ×2 (08:34→10:41)
[2016-12-01] MEDS ORDERED: RIVAROXABAN 10 MG TAB PO SCH (09:00)
[2016-12-01] MEDS ORDERED: metFORMIN 500 MG TAB PO SCH (09:00)
[2016-12-01] MEDS ORDERED: GABAPENTIN 100 MG CAP PO SCH (09:00)
[2016-12-01] MEDS ORDERED: amLODIPine 10 MG TAB PO SCH (09:00)
[2016-12-01] MEDS ORDERED: METOPROLOL TARTRATE 50 MG TAB PO SCH (09:00)
[2016-12-01] MEDS ORDERED: LISINOPRIL 20 MG TAB PO SCH (09:00)
[2016-12-01] MEDS ORDERED: ISOSORBIDE MONONITRATE 10 MG TAB PO ONE (09:00)
[2016-12-01] MEDS ORDERED: NON-FORMULARY DRUG (Meloxicam [Meloxicam] 15 MG) PO SCH (09:00)
[2016-12-01] MEDS ORDERED: LISINOPRIL 20 MG TAB PO ONE (09:30)
[2016-12-01] MEDS ORDERED: METOPROLOL TARTRATE 50 MG TAB PO ONE (09:30)
[2016-12-01 11:32] VITALS: BP 140/76; PULSE 74; RESP 18
--- NOTE | 2016-12-01 12:43 | ECHOT ---
TRANSESOPHAGEAL ECHOCARDIOGRAM INDICATION: Evaluation of left atrial appendage. PROCEDURE: After explaining the procedure to the patient as well as risks and the complication, his blood pressure, heart rate, O2 saturation was monitored. The throat was sprayed with Cetacaine. He received sedation per anesthesia department. The probe was introduced in the esophagus without difficulty. Images were obtained. Following that the probe was removed. There was no immediate complication. FINDINGS: Left atrial size is dilated. Left atrial appendage is normal. Left ventricular size and systolic function is normal. The aortic valve revealed mild thickening. The mitral, tricuspid and pulmonic valve were normal. Descending thoracic aorta appears to be normal. Contrast bubble study revealed no evidence of shunting across the interatrial septum. No pericardial effusion was noted. Doppler, pulse wave and color Doppler obtained and revealed mild mitral, tricuspid, aortic and pulmonic regurgitation. There was no shunting by color Doppler study. CONCLUSION: 1. Dilated left atrium and normal appearance of left atrial appendage. 2. Normal left ventricular size and systolic function. 3. Mild thickening of the aortic valve cusp. 4. Mild mitral, aortic, tricuspid and pulmonic regurgitation. 5. No shunting across the interatrial septum. 6. No pericardial effusion. MTDD
--- NOTE | 2016-12-01 20:37 | PCN ---
DATE OF SERVICE: 12/01/2016 CARDIOVERSION PROCEDURE NOTE INDICATION: Atrial fibrillation. PROCEDURE: After explaining the procedure to the patient, its risks and complications, his blood pressure and heart rate and oxygen saturation were monitored. After obtaining a sedated stated by the anesthesia department and performing transesophageal echocardiogram, a synchronized biphasic cardioversion using 200 joules was performed with confucianist of normal sinus rhythm. There was no immediate complication. GERARDO
[2016-12-01] MEDS ORDERED: GABAPENTIN 300 MG CAP PO SCH (21:00)
[2016-12-01] MEDS ORDERED: NON-FORMULARY DRUG (Simvastatin [Simvastatin] 80 MG) PO SCH (21:00)
[2016-12-02] MEDS ORDERED: GLIMEPIRIDE 1 MG TAB PO SCH (07:30)
== END 2016-12-01 11:45 | disposition home or self-care (01) ==
LOC: CATHCVL 05:50
PROVIDERS: ATTEND Internal Medicine Interventional Cardiology
DX: I48.1 Persistent atrial fibrillation (principal); Z79.01 Long term (current) use of anticoagulants; I08.3 Combined rheumatic disorders of mitral, aortic and tricuspid valves; I37.1 Nonrheumatic pulmonary valve insufficiency; I10 Essential (primary) hypertension; E11.9 Type 2 diabetes mellitus without complications; Z79.84 Long term (current) use of oral hypoglycemic drugs; Z95.1 Presence of aortocoronary bypass graft; E78.2 Mixed hyperlipidemia; Z82.49 Family history of ischemic heart disease and other diseases of the circulatory system; Z95.5 Presence of coronary angioplasty implant and graft; Z79.899 Other long term (current) drug therapy
CPT/HCPCS: 93312; 93320; 93005; 93325; 92960; 80048; J2704